=== PATIENT | female | born 1945 | race Caucasian/White ===

== ENCOUNTER 2019-02-09 20:29 | Inpatient (IN) | payer MEDICAID ==
[~2019-02-09] VITALS: Ht 134.6 cm; Wt 47.2 kg
[2019-02-09 20:35] VITALS: BP 163/133
[2019-02-09] MEDS ORDERED: OCUFLOX5 ML OPHTHALMIC (20:43)
[2019-02-09] MEDS ORDERED: DUREZOL5 ML OPHTHALMIC (20:44)
[2019-02-09] MEDS ORDERED: ILEVRO1.7 ML OPHTHALMIC (20:44)
[2019-02-09 21:03] LABS: ABSOLUTE BASOPHILS 0.1 thou/uL (0.0-0.2); ABSOLUTE EOSINOPHILS 0.1 thou/uL (0.0-0.7); ABSOLUTE MONOCYTES 0.6 thou/uL (0.0-1.2); BASOPHILS 0.9 %; EOSINOPHILS 1.3 %; HEMATOCRIT 40.5 % (37.0-47.0); HEMOGLOBIN 13.3 gm/dL (12.0-15.0); LYMPHOCYTES 38.9 %; MCH 29.6 pg (26.0-34.0); MCHC 32.8 g/dL (28.0-37.0); MCV 90.4 fL (80.0-100.0); MONOCYTES 7.5 %; MPV 7.5 fl. (7.2-11.1); NUCLEATED RBCS 0 /100WBC; PLATELET COUNT* 303 thou/uL (150-400); POLYS 51.4 %; RBC 4.48 mil/uL (4.20-5.00); RDW-CV 13.2 % (10.5-14.5); WBC 7.7 thou/uL (4.0-11.0)
[2019-02-09 21:11] LABS: ANION GAP 10 mmol/L (7-16); BUN 16 mg/dL (7-18); CALCIUM 8.9 mg/dL (8.5-10.1); CHLORIDE 105 mmol/L (98-107); CO2 24 mmol/L (21-32); CREATININE 0.7 mg/dL (0.6-1.3); GLUCOSE 122 mg/dL (70-99); POTASSIUM 3.9 mmol/L (3.5-5.1); SODIUM 139 mmol/L (136-145)
[2019-02-09 21:14] LABS: PROTIME 10.4 Seconds (9.20-11.50)
[2019-02-09 21:20] LABS: ALBUMIN 3.4 g/dL (3.4-5.0); ALKALINE PHOSPHATASE 104 U/L (46-116); LIPASE 131 U/L (73-393); SGOT 22 U/L (15-37); SGPT 21 U/L (30-65); TOTAL BILIRUBIN 0.2 mg/dL (<0.1-1.0); TOTAL PROTEIN 7.6 g/dL (6.4-8.2); TROPONIN-I LEVEL <0.06 ng/mL (<0.06)
[2019-02-09 22:35] LABS: BE 0 mmol/L (-2 to +3); PCO2 35.5 mmHg (35.0-45.0); PO2 77.1 mmHg (75.0-100.0); pH 7.441 (7.340-7.450)
[2019-02-09 22:39] VITALS: BP 121/64
[2019-02-09 23:00] VITALS: BP 155/74
[2019-02-09 23:05] LABS: URINE BILIRUBIN NEGATIVE (Negative); URINE BLOOD NEGATIVE (Negative); URINE CLARITY CLEAR; URINE COLOR YELLOW; URINE GLUCOSE-RANDOM NEGATIVE (Negative); URINE KETONES NEGATIVE (Negative); URINE LEUKOCYTES-REFLEX TRACE (Negative); URINE NITRITE-REFLEX NEGATIVE (Negative); URINE PROTEIN NEGATIVE (Negative); URINE UROBILINOGEN 0.2 E.U./dl (0.2-1.0)
[2019-02-09 23:13] LABS: CASTS None Seen /LPF (None Seen); CRYSTALS None Seen /LPF (None Seen); MUCUS 0-3 Light strn/LPF (None Seen); SQUAMOUS 0-3 Few /LPF (0-3); URINE RBC 0-2 Rare /HPF (0-2); URINE WBC-REFLEX 0-5 Rare /HPF (0-5)
[2019-02-10 04:00] VITALS: BP 137/89
[2019-02-10 08:00] VITALS: BP 125/73
[2019-02-10 10:38] VITALS: BP 160/89; BP 172/82; BP 181/90
--- NOTE | 2019-02-10 10:48 | EKG ---
[place] [address] ELECTROCARDIOGRAM REPORT Name: FERMIN CAPPS Room: [address] ADM IN [facility]#: [id number] Admission: 02/09/19 Attend Phys: Braydon Santizo, Discharge: Date of : 41 Report #: [id number] THIS REPORT FOR: //name// [facility] ED Test Date: 2019-02-09 Test Time: 20:39:49 Pat Name: FERMIN CAPPS Department: Room: [facility] Gender: F [employer]: ZOE : 1945 Requested By: Bettina Samuels Order Number: [id number] MD: Prince Pisano Measurements Intervals [place] Rate: 91 P: 59 AK: 131 QRS: -1 QRSD: 85 T: 52 QT: 358 QTc: 441 Interpretive Statements Sinus rhythm Borderline T abnormalities, anterior leads No previous ECG available for comparison Electronically Signed On 02-10-2019 10:47:55 CDT by Prince Pisano [email or web address] <ELECTRONICALLY SIGNED> By: Prince Pisano MD, [facility] 02/10/19 1047 38 38 Prince Pisano MD, FACC /EPI
[2019-02-10 16:20] VITALS: BP 119/66
--- NOTE | 2019-02-10 17:14 | 2DMMODE ---
[place] [address] 2 D/M-MODE ECHOCARDIOGRAM Name: FERMIN CAPPS Room: [address] IN [facility]#: [id number] Admission: 02/09/19 Attend Phys: Braydon Gonzalez Discharge: Date of : 41 Date of Service: 02/10/19 1714 Report #: [id number] THIS REPORT FOR: //name// APPROVED REPORT Study performed: 02/10/2019 15:52:01 EXAM: Comprehensive 2D, Doppler, and color-flow Echocardiogram Patient Location: In-Patient Room #: [facility] Status: routine BSA: 1.32 HR: 84 bpm BP: 172/82 mmHg Rhythm: NSR Other Information Study Quality: Good Indications Hypotension Dizziness 2D Dimensions IVSd: 10.85 (7-11mm) LVOT Diam: 20.53 (18-24mm) LVDd: 38.03 mm PWd: 10.85 (7-11mm) Ascending Ao: 36.05 (22-36mm) LVDs: 19.47 (25-40mm) Aortic Root: 36.49 mm Volumes Left Atrial Volume (Systole) LA ESV Index: 16.50 mL/m2 Aortic Valve AoV Peak Mahin.: 1.15 m/s AO Peak Gr.: 5.28 mmHg LVOT Max P.47 mmHg AO Mean Gr.: 2.86 mmHg LVOT Mean P.07 mmHg LVOT Max V: 0.79 m/s AO V2 VTI: 21.42 cm LVOT Mean V: 0.47 m/s MEY (VTI): 2.51 cm2 LVOT V1 VTI: 16.22 cm Mitral Valve E/A Ratio: 0.72 MV Decel. Time: 169.90 [place] [address] 2 D/M-MODE ECHOCARDIOGRAM Name: FERMIN CAPPS Room: [address] IN [facility]#: [id number] Admission: 02/09/19 Attend Phys: Braydon Gonzalez Discharge: Date of : 41 Date of Service: 02/10/19 1714 Report #: [id number] MV E Max Mahin.: 0.66 m/s MV PHT: 49.27 ms MVA (PHT): 4.47 cm2 TDI E/Lateral E': 8.25 E/Medial E': 9.43 Medial E' Mahin.: 0.07 m/s Lateral E' Mahin.: 0.08 m/s Pulmonary Valve PV Peak Mahin.: 0.67 m/s PV Peak Gr.: 1.81 mmHg Tricuspid Valve RAP Estimate: 5.00 mmHg TR Peak Gr.: 29.85 mmHg RVSP: 34.00 mmHg PA Pressure: 34.00 mmHg Left Ventricle The left ventricle is normal size. There is normal LV segmental wall motion. There is normal left ventricular wall thickness. Left ventricular systolic function is normal. The left ventricular ejection fraction is within the normal range. LVEF is 60-65%. Grade I - abnormal relaxation pattern. Right Ventricle The right ventricle is normal size. The right ventricular systolic function is normal. Atria The left atrium size is normal. The right atrium size is normal. Aortic Valve The aortic valve is normal in structure. Trace aortic regurgitation. There is no aortic valvular stenosis. Mitral Valve The mitral valve is normal in structure. There is no mitral valve regurgitation noted. No evidence of mitral valve stenosis. Tricuspid Valve The tricuspid valve is normal in structure. Mild tricuspid regurgitation. estimate pa pressure 35 mm Hg Pulmonic Valve The pulmonary valve is normal in structure. [place] [address] 2 D/M-MODE ECHOCARDIOGRAM Name: MICAELA CAPPSWing Maier Room: [address] IN [facility]#: [id number] Admission: 02/09/19 Attend Phys: Braydon Gonzalez Discharge: Date of : 41 Date of Service: 02/10/19 1714 Report #: [id number] regurgitation. Great Vessels Aortic root is borderline dilated. IVC is normal in size and collapses >50% with inspiration. Pericardium There is no pericardial effusion. <Conclusion> Left ventricular systolic function is normal. The left ventricular ejection fraction is within the normal range. <ELECTRONICALLY SIGNED> By: Prince Pisano MD, [facility] 02/10/191713 13 13 Prince Pisano MD, FAC /INF
[2019-02-10 20:00] VITALS: BP 122/64
[2019-02-11] VITALS: BP 127/64
[2019-02-11 04:00] VITALS: BP 145/79
[2019-02-11 08:00] VITALS: BP 161/71
[2019-02-11 11:54] VITALS: BP 145/86
[2019-02-11 12:58] VITALS: BP 145/86
[2019-02-11] MEDS ORDERED: CARDIZEM CD120 MG PO (12:58)
--- NOTE | 2019-02-11 16:33 | CON ---
[address] [address] CONSULTATION Name: FERMIN CAPPS Room: [address]#: [id number] Admission: 02/09/19 Attend Phys: Braydon Santizo, Discharge: 02/11/19 Date of : 41 Report #: [id number] THIS REPORT FOR: //name// CC: CELINA physician/PCP Bradyon Santizo NEUROLOGY CONSULTATION HISTORY OF PRESENT ILLNESS: The patient is a 73-year-old female who speaks only Nasir and other [place] dialect. I obtained the history completely from Dr. Baltazar's note and information from the Emergency Room. Apparently, the patient recently had eye surgery and when she stands, she feels dizzy. When the patient sat up, her heart rate went from 90 to 120. However, she did not appear to be orthostatic. In the Emergency Room, the patient presented with intermittent dizziness, headache and chest pain. PAST MEDICAL HISTORY: Negative. PAST SURGICAL HISTORY: Cataract surgery. MEDICATIONS: Ocuflox, Durezol and Ilevro eyedrops. ALLERGIES: None. PHYSICAL EXAMINATION: VITAL SIGNS: Temperature 36.2, pulse rate 88, respiratory rate 18, blood pressure 119/66. Orthostatic blood pressures show a sitting blood pressure of 160/89 and a standing blood pressure of 181/90, bedside pulse oximetry 95% on room air. NEUROLOGIC: Cranial nerves 2 through 12 appeared grossly intact on inspection. She was able to move all 4 extremities equally. Plantar responses were flexor. LABORATORY WORK: Hematology: White blood cell count 7.7; hemoglobin 13.3; hematocrit 40.5; MCV 90.4; platelet count 303,000. INR 1. Urinalysis: Trace leukocyte esterase, moderate bacteria. Chemistry: Sodium 139, potassium 3.9, chloride 105, carbon dioxide 24, BUN 16, creatinine 0.7, glucose 112. Liver functions unremarkable. IMAGING: CT scan of the head, atrophy and an old right basal ganglia infarct. IMPRESSION: This patient has episodic dizziness. There have been significant fluctuations in the patient's blood pressure since admission and perhaps this plays a role in the lightheaded feeling. Also, eyedrops can cause lightheadedness as well. I would try to keep the patient's blood pressure as controlled and stable as possible. She is currently getting IV fluid and tomorrow [place] [address] CONSULTATION Name: FERMIN CAPPS Room: [address]#: [id number] Admission: 02/09/19 Attend Phys: Braydon Santizo, Discharge: 02/11/19 Date of : 41 Report #: [id number] not improved, then I would try to repeat the orthostatic blood pressures at that time. I thank you for your kind referral of the patient. <ELECTRONICALLY SIGNED> By: Liz Peng DO 02/11/19 1633 [id number] [id number] Peng DO /yony
== END 2019-02-11 14:25 | disposition home or self-care (01) | DRG 312 ==
LOC: M.ERS 20:29 → M.TBA-ER 22:17 → M.2W 22:17
PROVIDERS: Personal Emergency Response Attendant; ADMIT Family Medicine
DX: R55 Syncope and collapse (principal); R42 Dizziness and giddiness; R51 Headache; R07.9 Chest pain, unspecified; I10 Essential (primary) hypertension; K21.9 Gastro-esophageal reflux disease without esophagitis; Z98.42 Cataract extraction status, left eye; Z98.41 Cataract extraction status, right eye; Z79.899 Other long term (current) drug therapy